=== PATIENT | female | born 1960 | race Caucasian/White ===

== ENCOUNTER → 2017-08-13 | Outpatient (CLI) | payer BC ==
[~2017-08-13] MED LIST: ASPI-482 PO; ATOR40TA PO; GLUC1TAB71 PO; MULT1TAB52 PO; OMEP20TA8 PO; VITA1CAP PO; flexeril
--- NOTE | 2017-08-13 13:44 | KCIC ---
3 view cervical spine HISTORY: Chronic neck pain and upper extremity right-sided pain. No recent injury. FINDINGS: C1-C7 are visualized on the lateral view. Mild reversal the cervical lordosis, can be seen with muscle spasm or patient positioning. Prevertebral soft tissues are not swollen. Moderate to severe loss of height at C5-6 and C6-7, with marginal osteophytes. No significant spondylolisthesis is identified. IMPRESSION: 1. Cervical spondylosis. 2. No evidence of an acute fracture or subluxation. Electronically signed by: Dima Alvarenga MD (08/13/2017 1:41 PM) [facility]
--- NOTE | 2017-08-13 14:05 | KCIC ---
Three-view thoracic spine HISTORY: Thoracic pain, chronic. COMPARISON: None FINDINGS: No evidence of an acute fracture. There is a slight right convexity thoracic scoliosis. Mild degenerative changes and marginal spurring is identified in the thoracic spine. Degenerative changes are also incidentally noted in the lower cervical spine. IMPRESSION: Degenerative change. No evidence of acute fracture or subluxation. Electronically signed by: Dima Alvarenga MD (08/13/2017 2:01 PM) [facility]
== END | disposition home or self-care (01) ==
LOC: KCIC 12:59
PROVIDERS: ATTEND Family Medicine
DX: M47.892 Other spondylosis, cervical region (principal); M47.894 Other spondylosis, thoracic region
CPT/HCPCS: 72040; 72072

== ENCOUNTER 2017-12-17 17:37 | Emergency (ER) | payer OTHER, BC ==
[2017-12-17] MEDS: IV NORMAL SALINE 1000ML BAG 1,000 ML IV (19:30)
[2017-12-17] MEDS: KETOROLAC 15 MG/ML VIAL. IV (19:30)
[2017-12-17] MEDS: ONDANSETRON PF 4 MG/2 ML VIAL. IV ×2 (19:30)
[2017-12-17 19:47] LABS: ADD MAN DIFF? NO
[2017-12-17 19:49] LABS: BASO # 0.1 x10^3/uL (0.0-0.2); BASO % 1 % (0-3); EOS # 0.2 x10^3/uL (0.0-0.7); EOS % 3 % (0-3); HEMATOCRIT 43.9 % (36.0-47.0); HEMOGLOBIN 15.3 g/dL (12.0-15.5); LYMPH # 2.9 x10^3/uL (1.0-4.8); LYMPH % 33 % (24-48); MEAN CORPUSCULAR HEMOGLOBIN 31 pg (25-35); MEAN CORPUSCULAR HGB CONC 35 g/dL (31-37); MEAN CORPUSCULAR VOLUME 89 fL (79-100); MONO # 0.8 x10^3/uL (0.0-1.1); MONO % 9 % (0-9); NEUT # 4.9 x10^3uL (1.8-7.7); NEUT % 55 % (31-73); PLATELET COUNT 221 x10^3/uL (140-400); RED BLOOD COUNT 4.94 x10^6/uL (3.50-5.40); RED CELL DISTRIBUTION WIDTH 13.6 % (11.5-14.5); WHITE BLOOD COUNT 8.8 x10^3/uL (4.0-11.0)
[2017-12-17 19:58] LABS: ANION GAP 9 (6-14); BLOOD UREA NITROGEN 15 mg/dL (7-20); BUN/CREATININE RATIO 17 (6-20); CALCIUM 9.1 mg/dL (8.5-10.1); CARBON DIOXIDE 28 mmol/L (21-32); CHLORIDE 104 mmol/L (98-107); CREATININE 0.9 mg/dL (0.6-1.0); GFR 64.8; GLUCOSE 93 mg/dL (70-99); POTASSIUM 4.1 mmol/L (3.5-5.1); SODIUM 141 mmol/L (136-145)
[2017-12-17 20:01] LABS: BILIRUBIN,URINE NEGATIVE (NEG); CLARITY,URINE CLEAR; COLOR,URINE YELLOW; GLUCOSE,URINE NEGATIVE (NEG); NITRITE,URINE NEGATIVE (NEG); PH,URINE 7.5; PROTEIN,URINE NEGATIVE (NEG-TRACE); UROBILINOGEN,URINE 0.2 mg/dL (0.2 mg/dL)
[2017-12-17 20:04] LABS: ALK PHOS 89 U/L (46-116); ALT (SGPT) 52 U/L (14-59); LIPASE 136 U/L (73-393); TOTAL BILIRUBIN 0.4 mg/dL (0.2-1.0); TOTAL PROTEIN 8.1 g/dL (6.4-8.2)
[2017-12-17 20:05] LABS: AST (SGOT) 32 U/L (15-37)
[2017-12-17 20:08] LABS: BACTERIA,URINE MANY /HPF (0-FEW); RBC,URINE OCC /HPF (0-2); SQUAMOUS EPITHELIAL CELL,UR MOD /LPF
== END 2017-12-17 21:11 | disposition home or self-care (01) ==
LOC: ER 17:37
DX: R10.32 Left lower quadrant pain (principal)
CPT/HCPCS: 36415; 74176; 80053; 81001; 83690; 85025; 87086; 87186; 96361; 96374; 96375; 99285-25; J1885; J2405; J7030

== ENCOUNTER → 2018-01-24 | Outpatient (CLI) | payer OTHER ==
[2018-01-24] MEDS: IOHEXOL 240 MG/ML 50ML VIAL. PO (10:05)
[2018-01-24] MEDS: IOHEXOL 300 MG/ML 100ML VIAL. IV (10:05)
== END | disposition home or self-care (01) ==
LOC: KCIC CT 09:00
DX: K57.30 Diverticulosis of large intestine without perforation or abscess without bleeding (principal)
CPT/HCPCS: 74177; Q9966; Q9967

== ENCOUNTER → 2018-07-11 | Outpatient (CLI) | payer BC, OTHER ==
[2017-12-17 21:00] VITALS: BP 143/89
[~2018-07-11] MED LIST changes: +ONDA4TAB10 SL; +TRAM-48 PO
--- NOTE | 2018-07-11 15:21 | KCIC ---
EXAM: Bilateral screening mammogram. HISTORY: 57-year-old female presents for screening mammography. TECHNIQUE: Full-field digital craniocaudal and mediolateral oblique views of both breasts are obtained for evaluation. Computer aided detection with [employer] software version 9.3 was applied. COMPARISON: 07/09/2017 BREAST PARENCHYMAL DENSITY: Level B - Scattered fibroglandular densities. FINDINGS: There is no new suspicious mass, microcalcification or region of architectural distortion. IMPRESSION: BI-RADS Category 2: Benign finding(s). RECOMMENDATION: Annual mammography is recommended. If your mammogram demonstrates that you have dense breast tissue, which could hide abnormalities, and if you have other risk factors for breast cancer that have been identified, you might benefit from supplemental screening tests that may be suggested by your ordering physician. Dense breast tissue, in and of itself, is a relatively common condition. This information is not provided to cause undue concern, but rather to raise your awareness and to promote discussion with your physician regarding the presence of other risk factors, in addition to dense breast tissue. A report of your mammography results will be sent to you and your physician. You should contact your physician if you have any questions or concerns regarding this report. Mammography is a sensitive method for finding small breast cancers, but it does not detect them all and is not a substitute for careful clinical examination. A negative mammogram does not negate a clinically suspicious finding and should not result in delay in biopsying a clinically suspicious abnormality. PQRS compliance statement - Patient information was entered into a reminder system with a target due date for the next mammogram. "Our facility is accredited by the [employer] Mammography Program." Electronically signed by: Mai Mccormack MD (07/11/2018 3:18 PM) [facility]
== END | disposition home or self-care (01) ==
LOC: KCIC MAMMO 13:54
PROVIDERS: ATTEND Family Medicine
DX: Z12.31 Encounter for screening mammogram for malignant neoplasm of breast (principal)
CPT/HCPCS: 77067

== ENCOUNTER → 2019-01-02 | Outpatient (CLI) | payer OTHER ==
[2017-12-17 21:00] VITALS: BP 143/89
[~2019-01-02] MED LIST changes: +ATOR10TA60 PO; +CALC500T30 PO; +CINN500C2 PO; +DICL75TA PO; +MAGN400C PO; +METH-38 PO; +MILK140C PO; +ZINC30CA PO
--- NOTE | 2019-01-02 12:22 | KCIC ---
MRI of the lumbar spine without contrast 01/02/2019 CLINICAL HISTORY: Chronic low back pain. TECHNIQUE: Unenhanced T1-weighted and T2-weighted sagittal, axial and inversion recovery sagittal images of the lumbar spine were obtained. FINDINGS: Comparison is made to radiographs of lumbar spine dated 03/27/2004. The patient is noted to have transitional vertebral anatomy. For the purposes of this dictation the transitional vertebral segment will be referred to by the letter T. A hypoplastic disc is seen at T-S1. Very mild anterolisthesis of L5 in relation to T is seen. Degenerative signal changes are seen involving all of the disks of the lumbar spine. Degenerative signal changes are seen within the marrow surrounding these discs. Marked loss of height of the L1-2 disc is noted. The conus medullaris is normal morphology, position, and signal characteristics. At the L1-2 disc space there is a mild to moderate generalized disc bulge. This is eccentric to the right. Superimposed posterior vertebral body osteophyte formation is seen. This measures 5 mm in AP diameter. Degenerative changes are seen involving the facet joints bilaterally. There is mild ligamentum flavum hypertrophy bilaterally. These findings when combined result in mild central spinal canal stenosis. Mild right neural foraminal stenosis is seen. The left neural foramen is patent. At the L2-3 and L3-4 disc spaces there are mild generalized disc bulges. Degenerative changes are seen involving the facet joints bilaterally. There is mild ligamentum flavum hypertrophy bilaterally. These findings do not result in significant central spinal canal or neural foraminal stenosis. At the L4-5 disc space there is a mild to moderate generalized disc bulge. This is eccentric to the left. Degenerative changes are seen involving the facet joints bilaterally. There is moderate ligamentum flavum hypertrophy bilaterally. These findings when combined result in mild to moderate left greater than right central spinal canal stenosis. Mild to moderate left greater than right neural foraminal stenosis is seen. At the L5-T disc space there is a mild generalized disc bulge. Degenerative changes are seen involving the facet joints bilaterally. There is moderate ligamentum flavum hypertrophy bilaterally. These findings when combined do not result in significant central spinal canal or neural foraminal stenosis. The T-S1 disc space is within normal limits. IMPRESSION: The changes of degenerative disc disease are seen throughout the lumbar spine. These findings result in mild central spinal canal stenosis at L1-2 and mild to moderate left greater than right central spinal canal stenosis at L4-5. Mild right neural foraminal stenosis is seen at L1-2. Mild to moderate left greater than right neural foraminal stenosis is seen at L4-5. Electronically signed by: Mayur Charles MD (01/02/2019 12:19 PM) [id number]
== END | disposition home or self-care (01) ==
LOC: KCIC MRI 10:33
PROVIDERS: ATTEND Family Medicine
DX: M51.36 Other intervertebral disc degeneration, lumbar region (principal); M47.816 Spondylosis without myelopathy or radiculopathy, lumbar region; M48.061 Spinal stenosis, lumbar region without neurogenic claudication; M47.24 Other spondylosis with radiculopathy, thoracic region; M51.14 Intervertebral disc disorders with radiculopathy, thoracic region; M51.26 Other intervertebral disc displacement, lumbar region
CPT/HCPCS: 72148

== ENCOUNTER → 2019-02-17 | Outpatient (CLI) | payer OTHER ==
[2017-12-17 21:00] VITALS: BP 143/89
[~2019-02-17] MED LIST changes: +BUPIVACAINE MPF 0.25% 10 ML VIAL. ONE; +IOHEXOL 180 MG/ML 10 ML VIAL. ONE; +methylPREDNISolone ACETATE 40 MG/ML VIAL. ONE; +methylPREDNISolone ACETATE 80 MG/ML VIAL. ONE
--- NOTE | 2019-02-17 17:45 | PAIN ---
DATE OF SERVICE: 02/17/2019 INITIAL CONSULTATION FOR PAIN CLINIC CHIEF COMPLAINT: Low back pain. HISTORY OF PRESENT ILLNESS: The patient is a 58-year-old female who presents with history of pain in the low back for about 4-5 years, increasing, worse over the past year or so, worse with walking, standing, changing positions, twisting, bending, especially extension of the lumbar spine, pain across the low back, worse on the left than the right, but present bilaterally. The patient reports no specific injury or accident that she is aware of, but the pain is now constant. It is becoming more sharp, stabbing, throbbing, worse with standing and walking and worse with prolonged sitting. It does not radiate into the lower extremities significantly, but she does have some pain in the left upper extremity from the neck and shoulder, which is secondary. The patient reports she wears a back brace at work and when she is active the pain increases. The patient reports it awakens her from sleep, but is only very rarely, does not affect her bowel or bladder control with any incontinence, but reports she does have some increased frequency when the pain is at its worst. The patient reports it does affect her ability to walk and stand. She tried physical therapy, also counseling and exercise, which she is currently doing, has had problem with physical therapy as well within the last 2 years without significant decrease in pain. The patient is trying diclofenac as well as methocarbamol and alendronate only with minor decrease in pain with each of these. The patient did have an MRI scan of the lumbar spine showing degenerative changes throughout the lumbar spine resulting in mild central spinal canal stenosis at L1-L2, moderate left greater than right central spinal canal stenosis at L4-L5 and mild right neural foraminal stenosis at L1-L2. The patient rates her disability rating from 0 to 10, 10 being the worst, it is a 7 with family and home responsibilities, recreation and social activity, 10 with occupation, 4 with sexual behavior, 0 with self-care and 0 with life support activities. PAST MEDICAL HISTORY: Significant for cigarette smoking, arthritis, osteoporosis, scoliosis, frequent urinary tract infections. PREVIOUS SURGERY: Include hysterectomy, bilateral carpal tunnel repair, tonsillectomy and strabismus surgery. CURRENT MEDICATIONS: Include cinnamon, milk thistle, calcium, multivitamins, turmeric, atorvastatin, magnesium, zinc, alendronate, methocarbamol and diclofenac. ALLERGIES: The patient has no known drug allergies. FAMILY HISTORY: Significant for diabetes type 1, hypertension and Alzheimer's disease. SOCIAL HISTORY: The patient drinks alcohol only socially very rarely, smokes about 6 cigarettes a day, for 15 years, does not use any illegal, illicit or recreational drugs. She is and lives with her spouse, lives locally in [place], [place] and works for the [employer]. REVIEW OF SYSTEMS: The patient's review of systems is positive for those items mentioned in history of present illness. All systems reviewed and otherwise negative. It is complete, full and well documented on the patient's chart. PHYSICAL EXAMINATION: VITAL SIGNS: The patient's blood pressure is 122/73, pulse 85, respirations 16, temperature 98.6 degrees Fahrenheit, height is 5 feet 5 inches, weight is 164 pounds. GENERAL: The patient is awake, alert, oriented, appropriate, very pleasant demeanor. HEENT: Shows normocephalic, atraumatic. Extraocular movements are intact and symmetrical. Oral cavity, mucous membranes are moist and pink. Dentition is intact. NECK: Shows anterior throat supple without palpable lymphadenopathy noted. Swallow reflex symmetrical. CHEST: Shows normal with inspection. Breath sounds clear to auscultation bilaterally. HEART: Shows S1, S2 clear. No murmurs auscultated. ABDOMEN: Soft, nontender, nondistended. No palpable organomegaly is noted. No rebound or guarding demonstrated. BACK: Shows spine grossly in the midline, normal-appearing cervical lordotic curvature, thoracic kyphotic curvature and lumbar lordotic curvature. Lumbar paraspinous muscle shows symmetrical with inspection, with palpation shows some [id number] tenderness throughout the upper, middle and lower distribution of paraspinous muscle, they are significantly more in the lower distribution on the left side greater than right with direct palpation. No specific trigger points, no radiation of pain, no tenderness over the spinous processes, sacrum or sacroiliac regions. The patient shows no tenderness over the sacrum itself. Good rotational motion of the lumbar spine is maintained with some moderate tenderness with left lateral rotation greater than 10 degrees, but not with right. Forward flexion is fairly comfortable and the patient reports extension of the spine increased pain in the left side, but actually she feels better on the right side. EXTREMITIES: Lower extremities show deep tendon reflexes 2+ in the patellar, 1+ tendo calcaneus tendons. Motor exam is strong with 5/5 dorsiflexion, extension, quadriceps and hamstring flexion and equal. Peripheral pulses are 1+ posterior tibia. No peripheral edema is noted. Lower extremities are warm and dry to touch, equal in color and appearance. Straight leg raise noted to be negative for reproduction of radicular symptoms bilaterally. Gaenslen's and Ronn's maneuvers are negative bilaterally as well. The patient is able to stand, stand on her toes without difficulty or loss of balance, walks with a normal-appearing gait, not using any assistive devices to ambulate. SKIN: Shows warm and dry, good turgor. No edema. No sores, rashes or bruising throughout. IMPRESSION: This is a 58-year-old female with, 1. A 4-5 year history increasing over the past 1 year pain in the low back, left greater than right. 2. MRI scan of lumbar spine as noted. 3. Cigarette smoking. 4. Arthritis. PLAN: Options were discussed with the patient including conservative medical management, physical therapy and interventional techniques. Since she is doing physical therapies already, she would like to try interventional techniques. We discussed bilateral L4-L5 and L5-S1 facet joint injections using description as well as anatomical models to describe the procedure. The patient would like to proceed. Risks were discussed including but not limited to bleeding, infection, possibility of epidural hematoma and subsequent neurological compromise, dural puncture, headaches, spinal cord and/or nerve damage, side effects of steroid medication and poor results regarding pain control. The patient understands and wished to proceed. The patient will return to clinic in approximately 2 weeks for followup, was counseled on her return appointment, activity level and side effects to be aware of. DIAGNOSIS: Lumbar degenerative disk disease, lumbar spondylosis. PROCEDURES: Bilateral L4-L5 and L5-S1 facet joint injections using C-arm fluoroscopic guidance under sterile prep and drape using local anesthetic. MEDICATION INJECTED: A total of 4 mL of 0.25% bupivacaine, 120 mg of Depo-Medrol and 2 mL total of contrast. CONDITION AT DISCHARGE: Stable. The patient tolerated the procedure well and had no complications. RUDI COUGHLIN MD DR: RICHARD/alex JOB#: [id number] / [id number] SUNIL Persaud MD
== END ==
LOC: PNCL 10:35
PROVIDERS: ATTEND Anesthesiology
DX: M51.36 Other intervertebral disc degeneration, lumbar region (principal); M47.816 Spondylosis without myelopathy or radiculopathy, lumbar region; F17.210 Nicotine dependence, cigarettes, uncomplicated; Z90.710 Acquired absence of both cervix and uterus; Z98.890 Other specified postprocedural states; Z72.89 Other problems related to lifestyle; Z87.440 Personal history of urinary (tract) infections
CPT/HCPCS: 64493; 64494; J1030; J1040; J3490; Q9965

== ENCOUNTER 2019-03-19 18:15 | Emergency (ER) | payer OTHER ==
[2017-12-17 21:00] VITALS: BP 143/89
[~2019-03-19] VITALS: Ht 165.1 cm; Wt 72.6 kg
[~2019-03-19 18:15] MED LIST changes: -BUPIVACAINE MPF 0.25% 10 ML VIAL. ONE; -IOHEXOL 180 MG/ML 10 ML VIAL. ONE; -methylPREDNISolone ACETATE 40 MG/ML VIAL. ONE; -methylPREDNISolone ACETATE 80 MG/ML VIAL. ONE
--- NOTE | 2019-03-19 18:48 | PHYS DOC ---
Past Medical History Past Medical History: Diverticulitis, High Cholesterol (GERRY CHRISTIE APRN) Alcohol Use: None Drug Use: None (GERRY CHRISTIE APRN) Adult General Chief Complaint Chief Complaint: HEAD INJURY/TRAUMA HPI HPI Patient is a 58 year old female who presents to the ED today complaining of left facial contusion and a mild forehead pain that has been going on since Saturday after a metal beam she was working on building a gazebo fell on her left facial area. Patient denies any loss of consciousness. She states she would like a CT of her head and face to make sure everything is okay. (GERRY CHRISTIE APRN) Review of Systems Review of Systems Constitutional: Denies fever or chills [] Eyes: Denies change in visual acuity, redness, or eye pain [] HENT: Reports left facial pain. Denies nasal congestion or sore throat [] Respiratory: Denies cough or shortness of breath [] Cardiovascular: No additional information not addressed in HPI [] GI: Denies abdominal pain, nausea, vomiting, bloody stools or diarrhea [] : Denies dysuria or hematuria [] Musculoskeletal: Denies back pain or joint pain [] Integument: Denies rash or skin lesions [] Neurologic: Reports forehead pain, denies focal weakness or sensory changes [] All other systems were reviewed and found to be within normal limits, except as documented in this note. (GERRY CHRISTIE APRN) Allergies Allergies Allergies Coded Allergies Type Severity Reaction Last Updated Verified No Known Drug Allergies 11/02/14 No (SUNIL SCHUMACHER DO) Physical Exam Physical Exam Constitutional: Well developed, well nourished, no acute distress, non-toxic appearance. [] HENT: Normocephalic, atraumatic, bilateral external ears normal, oropharynx moist, no oral exudates, nose normal. Bruising noted on the left lower eyelid.No entrapment syndrome. Eyes: PERRLA, EOMI, conjunctiva normal, no discharge. [] Neck: Normal range of motion, no tenderness, supple, no stridor. [] Cardiovascular:Heart rate regular rhythm, no murmur [] Lungs & Thorax: Bilateral breath sounds clear to auscultation [] Abdomen: Bowel sounds normal, soft, no tenderness, no masses, no pulsatile masses. [] Skin: Warm, dry, no erythema, no rash. [] Back: No tenderness, no CVA tenderness. [] Extremities: No tenderness, no cyanosis, no clubbing, ROM intact, no edema. [] Neurologic: Alert and oriented X 3, normal motor function, normal sensory function, no focal deficits noted. Cranial nerves II through XII intact Psychologic: Affect normal, judgement normal, mood normal. [] (GERRY CHRISTIE APRN) Current Patient Data Vital Signs Vital Signs Date Time Temp Pulse Resp B/P (MAP) Pulse Ox O2 Delivery O2 Flow Rate FiO2 03/19/19 18:32 98.0 75 18 139/70 (93) 96 Room Air 98.0 (SCHUMACHER,SUNIL R DO) EKG EKG [] (GERRY CHRISTIE APRN) Radiology/Procedures Radiology/Procedures []PROCEDURE: CT HEAD AND MAXILLOFACIAL WO CT brain without contrast, CT maxillofacial without contrast. HISTORY: Being fell on face, pain, headache CT brain CT scan of the brain was done without contrast. A skull fracture is not identified. Mastoids are normally aerated. There is no intracranial hemorrhage or subdural hematoma. Ventricles are normal in size. There is no mass or shift of the midline. IMPRESSION: 1. No intracranial hemorrhage or acute finding noted. End impression CT FACIAL BONES: Axial CT images were obtained through the facial bones. Sagittal and coronal reconstructed images were reviewed. Mandible is intact. Sinuses are clear throughout. A facial fracture is not identified. Upper cervical spine is in normal alignment. There is disc space narrowing at C4-5 and C5-6. Lower cervical spine is incompletely evaluated. There is foraminal narrowing at C5-6 bilaterally. There is arthritis at the TM joints bilaterally. Nasal bone is intact. Orbits are intact. IMPRESSION: 1. No facial fracture noted. PQRS Compliance Statement: One or more of the following individualized dose reduction techniques were utilized for this examination: 1. Automated exposure control 2. Adjustment of the mA and/or kV according to patient size 3. Use of iterative reconstruction technique Electronically signed by: Princess Mcelroy MD (03/19/2019 7:17 PM) [facility] DICTATED and SIGNED BY: PRINCESS MCELROY MD DATE: 03/19/191916 (GERRY CHRISTIE APRN) Course & Med Decision Making Course & Med Decision Making Pertinent Labs and Imaging studies reviewed. (See chart for details) This is a 58-year-old female patient presenting to the ED today with left facial contusion after a metal beam she was using to be intact as able fell on her face on Saturday. No loss of consciousness. Bruising noted on the left lower eyelid. CT of the head and maxillofacial were negative for any acute findings. Patient was discharged to home. Ice elevation of the affected areas recommended. OTC pain relievers. Follow-up with PCP in 1-2 weeks. (GERRY CHRISTIE APRN) Dragon Disclaimer Dragon Disclaimer This electronic medical record was generated, in whole or in part, using a voice recognition dictation system. (GERRY CHRISTIE APRN) Departure Departure Impression: Primary Impression: Facial contusion Disposition: , SELF-CARE Condition: STABLE Referrals: SUNIL BARRIENTOS MD (PCP) follow up in 2 weeks Patient Instructions: Contusion, [id number] Additional Instructions: You were evaluated in the emergency room for facial contusion, your CT of the head and cervical spine were negative for any acute findings. Try to ice and elevate the affected area, take [id number] pain relievers as needed. Follow-up with your own doctor in 1-2 weeks. Attending Signature Attending Signature I have reviewed the PA/[employer]GER's note and plan of care. I was available for consultation as needed during the patient's visit in the emergency department. I agree with the clinical impression, plan, and disposition. (SUNIL SCHUMACHER DO) Problem Qualifiers Primary Impression: Facial contusion Encounter type: initial encounter Qualified Codes: S00.83XA - Contusion of other part of head, initial encounter GERRY CHRISTIE APRN Mar 19, 2019 18:48 SUNIL SCHUMACHER DO Mar 23, 2019 14:59
--- NOTE | 2019-03-19 19:19 | RAD ---
CT brain without contrast, CT maxillofacial without contrast. HISTORY: Being fell on face, pain, headache CT brain CT scan of the brain was done without contrast. A skull fracture is not identified. Mastoids are normally aerated. There is no intracranial hemorrhage or subdural hematoma. Ventricles are normal in size. There is no mass or shift of the midline. IMPRESSION: 1. No intracranial hemorrhage or acute finding noted. End impression CT FACIAL BONES: Axial CT images were obtained through the facial bones. Sagittal and coronal reconstructed images were reviewed. Mandible is intact. Sinuses are clear throughout. A facial fracture is not identified. Upper cervical spine is in normal alignment. There is disc space narrowing at C4-5 and C5-6. Lower cervical spine is incompletely evaluated. There is foraminal narrowing at C5-6 bilaterally. There is arthritis at the TM joints bilaterally. Nasal bone is intact. Orbits are intact. IMPRESSION: 1. No facial fracture noted. PQRS Compliance Statement: One or more of the following individualized dose reduction techniques were utilized for this examination: 1. Automated exposure control 2. Adjustment of the mA and/or kV according to patient size 3. Use of iterative reconstruction technique Electronically signed by: Tariq Mcelroy MD (03/19/2019 7:17 PM) [facility]
== END 2019-03-19 19:36 | disposition home or self-care (01) ==
LOC: ER 18:15
DX: S00.83XA Contusion of other part of head, initial encounter (principal); E78.00 Pure hypercholesterolemia, unspecified; W22.8XXA Striking against or struck by other objects, initial encounter; Y93.H3 Activity, building and construction; Y92.61 Building [any] under construction as the place of occurrence of the external cause; Y99.0 Civilian activity done for income or pay
CPT/HCPCS: 70450; 70486; 99284-25

== ENCOUNTER → 2019-04-02 | Outpatient (CLI) | payer OTHER ==
[2019-03-19 18:32] VITALS: BP 139/70
[~2019-04-02] MED LIST changes: +BUPIVACAINE MPF 0.25% 10 ML VIAL. ONE; +IOHEXOL 180 MG/ML 10 ML VIAL. ONE; +methylPREDNISolone ACETATE 40 MG/ML VIAL. ONE; +methylPREDNISolone ACETATE 80 MG/ML VIAL. ONE
--- NOTE | 2019-04-02 14:25 | PAIN ---
DATE OF SERVICE: 04/02/2019 PROGRESS NOTE FOR PAIN CLINIC DIAGNOSES: Lumbar degenerative disk disease, lumbar and lumbosacral spondylosis. HISTORY OF PRESENT ILLNESS: The patient is a 58-year-old female who returns for followup status post bilateral L4-L5 and L5-S1 facet joint injections on 02/17/2019. The patient did very well, reports about 90% improvement until the last week or so. She was putting up a gazebo and part of it fell on her and knocked her down when she has had increased pain in her low back since that time. The patient reports it is worse on the left than the right. This come back like it was, not quite to the area it was, still about 50% improvement overall. The patient reports no new motor or sensory deficits and no new bowel or bladder incontinence. The patient describes the pain as aching and tight, constant in the low back itself; worse with extension, standing, and walking. The patient reports it is a 6 on a scale of 10 at all times, worst average at least over the past week and is a 6 today. The patient reports it does not awaken her from sleep at night. She feels better with sitting or lying down. No new motor or sensory deficits or other complaints. PHYSICAL EXAMINATION: VITAL SIGNS: The patient's blood pressure is 136/86, pulse 90, respirations 18 an temperature 98.8 degrees Fahrenheit. Height is 5 feet 4 inches and weight is 160 pounds. GENERAL: The patient is awake, alert, oriented, appropriate and very pleasant demeanor. HEENT: Head is normocephalic and atraumatic. Extraocular movements are intact and symmetrical. Oral cavity, mucous membranes are moist and pink. Dentition intact. NECK: Shows anterior throat supple without palpable lymphadenopathy noted. Swallow reflex symmetrical. CHEST: Shows normal with inspection. Breath sounds are clear to auscultation bilaterally. HEART: Shows S1 and S2 clear. No murmurs auscultated. ABDOMEN: Soft, nontender and nondistended. No palpable organomegaly is noted. No rebound or guarding demonstrated. BACK: Shows spine grossly in the midline. Normal appearing thoracic kyphosis, some minor flattening of the lumbar lordotic curvature. Lumbar paraspinous muscle shows symmetrical on inspection, on palpation shows some mild tenderness in the low lumbar distribution, only mildly bilaterally without trigger points, without asymmetry. The patient shows good rotational motion both laterally as well as extension and flexion with some moderate pain with extension in the low back, greater on the left than the right, better with forward flexion at 45 degrees. EXTREMITIES: Lower extremities show deep tendon reflexes 2+ in the patellar, 1+ tendo-calcaneus tendons. Motor exam is strong with 5/5 dorsiflexion, extension and equal. Options were discussed with the patient. The patient's old chart was reviewed as well as her current medications regimen updated. Current review of systems updated today as well. We will proceed with bilateral L4-L5 and L5-S1 facet joint injections today with fluoroscopic guidance, is a second in this series. Risks were again discussed including, but not limited to bleeding, infection, possibility of epidural hematoma, subsequent neurological compromise, dural puncture, headaches, spinal cord and/or nerve damage, side effects of steroid medication and poor results regarding pain control. The patient understands and wished to proceed. The patient will return to the clinic in approximately 2 weeks for followup, was counseled as to return appointment, activity level and side effects to be aware of. DIAGNOSIS: Lumbar and lumbosacral spondylosis. PROCEDURE: Lumbar L4-L5 and L5-S1 facet joint injections bilaterally using C-arm fluoroscopic guidance under sterile prep and drape using local anesthetic. MEDICATION INJECTED: A total of 120 mL of Depo-Medrol plus total of 4 mL 0.25% bupivacaine and total of 2 mL of contrast. CONDITION AT DISCHARGE: Stable. The patient tolerated the procedure well and had no complications. RUDI COUGHLIN MD DR: RICHARD/alex JOB#: [id number] / [id number]
== END ==
LOC: PNCL 09:32
PROVIDERS: ATTEND Anesthesiology
DX: M51.36 Other intervertebral disc degeneration, lumbar region (principal); M47.817 Spondylosis without myelopathy or radiculopathy, lumbosacral region
CPT/HCPCS: 64493; 64494; J1030; J1040; J3490; Q9965

== ENCOUNTER → 2019-06-24 | Outpatient (CLI) | payer OTHER ==
[2019-03-19 18:32] VITALS: BP 139/70
--- NOTE | 2019-06-24 12:05 | PAIN ---
DATE OF SERVICE: 06/24/2019 PROGRESS NOTE FOR PAIN CLINIC DIAGNOSES: Lumbar degenerative disk disease with lumbar and lumbosacral spondylosis. HISTORY OF PRESENT ILLNESS: The patient is a 58-year-old female who returns for followup status post bilateral L4-L5 and L5-S1 facet joint injections, last seen 04/02/2019. The patient did very well for about 2 months of near 100% improvement by her report with the pain returning now, but only to moderate extent in the low back bilaterally, somewhat worse on the right than the left, but present bilaterally. The patient also reports pain in the base of the neck and right upper extremity where she had previously with some degenerative changes of the cervical spine and her chief complaint is low back pain bilaterally. The patient reports it is worse with standing, walking, changing positions, better with lying down or sitting, awakens her from sleep, better 5-6 hours, however, the patient can usually reposition and get back to sleep, worse with lying on her left side. The patient reports the pain is 8 on a scale of 10 at its worst over the past week, 7 on average, 6 at its least and is a 6 today. The patient reports it is aching, sharp, tight, burning, stabbing, becoming more constant with walking, standing, especially with extension of the lumbar spine and axial loading of the low back. The patient reports no new motor or sensory deficits, no bowel or bladder incontinence. PHYSICAL EXAMINATION: VITAL SIGNS: The patient's blood pressure 149/69, pulse 85, respirations 18, temperature 98.5 degrees Fahrenheit, height is 64 inches, weight is 154 pounds. GENERAL: The patient is awake, alert, oriented, appropriate, very pleasant demeanor. HEENT: Shows normocephalic, atraumatic. Extraocular movements are intact and symmetrical. Oral cavity: Mucous membranes moist and pink. Dentition is intact. NECK: Shows anterior throat supple without palpable lymphadenopathy noted. Swallow reflex symmetrical. CHEST: Shows normal on inspection. Breath sounds clear to auscultation bilaterally. HEART: Shows S1, S2 clear. No murmurs auscultated. ABDOMEN: Soft, nontender, nondistended. BACK: Shows spine grossly in the midline. Slight exaggeration of thoracic kyphosis, minor flattening of lumbar lordotic curvature. Lumbar paraspinous muscle shows symmetrical on inspection, on palpation shows some moderate tenderness diffusely bilaterally, but only diffusely without specific radiation. The patient has good rotational motion with some moderate tenderness with right greater than left rotation past 10 degrees as well as with extension significant tenderness in the low back, more on the right than the left, but better with forward flexion at 45 degrees which she performed without significant difficulty. EXTREMITIES: The patient's lower extremities show deep tendon reflexes 2+ in the patellar, 1+ tendo-calcaneus tendons. Motor exam is strong with 5/5 dorsiflexion, extension, quadriceps and hamstring flexion. Peripheral pulses are 1+ posterior tibia. No peripheral edema is noted bilaterally. Options were discussed with the patient. The patient's old chart was reviewed as her current medication regimen updated. Current review of systems updated today as well. We will proceed with a L4-L5 and L5-S1 facet joint injections today. She did very well with the last series. Risks were again discussed including, but not limited to bleeding, infection, possibility of epidural hematoma, subsequent neurological compromise, dural puncture, headaches, spinal cord and/or nerve damage, side effects of steroid medication and poor results regarding pain control. The patient understands and wished to proceed. The patient will return to clinic in approximately 2 weeks for followup. She was counseled as to return appointment, activity level and side effects to be aware of. DIAGNOSES: Lumbar and lumbosacral spondylosis. PROCEDURE: Bilateral L4-L5 and L5-S1 facet joint injection using C-arm fluoroscopic guidance under sterile prep and drape using local anesthetic. MEDICATION INJECTED: A total of 120 mg of Depo-Medrol plus total of 4 mL of 0.25% bupivacaine and 2 mL of contrast. CONDITION AT DISCHARGE: Stable. The patient tolerated the procedure well, had no complications. RUDI COUGHLIN MD DR: RICHARD/alex JOB#: [id number] / [id number]
== END ==
LOC: PNCL 10:18
PROVIDERS: ATTEND Anesthesiology
DX: M47.817 Spondylosis without myelopathy or radiculopathy, lumbosacral region (principal); M51.36 Other intervertebral disc degeneration, lumbar region
CPT/HCPCS: 64493; 64494; J1030; J1040; J3490; Q9965

== ENCOUNTER → 2019-07-10 | Outpatient (CLI) | payer OTHER ==
[2019-03-19 18:32] VITALS: BP 139/70
[~2019-07-10] MED LIST changes: -BUPIVACAINE MPF 0.25% 10 ML VIAL. ONE
--- NOTE | 2019-07-10 23:35 | PAIN ---
DATE OF SERVICE: 07/10/2019 PROGRESS NOTE FOR PAIN CLINIC DIAGNOSES: 1. Lumbar and lumbosacral spondylosis, lumbar degenerative disk disease. 2. Cervical radiculopathy with cervical degenerative disk disease. HISTORY OF PRESENT ILLNESS: The patient is a 58-year-old female who returns for followup status post bilateral lumbar facet joint injections. The patient did very well with near 100% improvement in the back. Her main complaint is right shoulder and arm pain as well as the base of the neck and upper neck and we talked about this on her last visit to proceed. The patient reports the pain is still significant and her low back is doing somewhat better. She has increased her activity with greater ease and comfort, doing work activities, household activities, walking greater distances. Her main complaint is right upper extremity with pain with repetitive motions, lifting items with the right arm, raising her right arm over her head. The patient reports the pain is 8 on a scale of 10 at its worst. Considering the neck and shoulder, right upper extremity, 8 on average and a 5 at its least over the past week and is a 5 today. The patient reports it is aching type, burning, constant. The patient reports no new motor or sensory deficits, no new changes. PHYSICAL EXAMINATION: VITAL SIGNS: The patient's blood pressure 144/88, pulse 81, respirations 18, temperature 98.6 degrees Fahrenheit, height is 5 feet 5 inches, weight is 153 pounds. GENERAL: The patient is awake, alert, oriented, appropriate, very pleasant demeanor. HEENT: Head shows normocephalic, atraumatic. Extraocular movements are intact and symmetrical. Oral cavity: Mucous membranes moist and pink. Dentition is intact. NECK: Shows anterior throat supple without palpable lymphadenopathy noted. Swallow reflex symmetrical. CHEST: Shows normal on inspection. Breath sounds clear to auscultation bilaterally. EXTREMITIES: The patient's upper extremity show deep tendon reflexes at 2+ in the biceps, triceps tendons. Motor exam is strong with 5/5 transportation planner strength, bicep and tricep flexion. Shoulder shrug is strong and intact without loss of strength on resistance. Peripheral pulses are 2+ radial distribution. No peripheral edema is noted. Options were discussed with the patient. The patient's old chart was reviewed as her current medication regimen updated. Current review of systems updated today as well. We will proceed with a cervical epidural steroid injection today with fluoroscopic guidance. Risks were again discussed including, but not limited to bleeding, infection, possibility of epidural hematoma, subsequent neurological compromise, dural puncture, headaches, spinal cord and/or nerve damage, side effects of steroid medication and poor results regarding pain control. The patient understands and wished to proceed. The patient will return to clinic in approximately 2 weeks for followup. She was counseled on return appointment, activity level and side effects to be aware of. DIAGNOSIS: Cervical radiculopathy with cervical degenerative disk disease. PROCEDURE: Cervical epidural steroid injection, translaminar approach C6-C7 level using C-arm fluoroscopic guidance under sterile prep and drape using local anesthetic. MEDICATION INJECTED: A total of 120 mg Depo-Medrol plus 5 mL of preservative-free normal saline and 2 mL of contrast. CONDITION AT DISCHARGE: Stable. The patient tolerated procedure well, had no complications. RUDI COUGHLIN MD DR: RICHARD/alex JOB#: [id number] / [id number]
== END | disposition home or self-care (01) ==
LOC: PNCL 08:32
PROVIDERS: ATTEND Anesthesiology
DX: M50.123 Cervical disc disorder at C6-C7 level with radiculopathy (principal); M51.36 Other intervertebral disc degeneration, lumbar region; M47.816 Spondylosis without myelopathy or radiculopathy, lumbar region; Z98.890 Other specified postprocedural states
CPT/HCPCS: 62321; J1030; J1040; Q9965

== ENCOUNTER → 2019-07-17 | Outpatient (CLI) | payer OTHER ==
[2019-03-19 18:32] VITALS: BP 139/70
[~2019-07-17] MED LIST changes: -IOHEXOL 180 MG/ML 10 ML VIAL. ONE; -methylPREDNISolone ACETATE 40 MG/ML VIAL. ONE; -methylPREDNISolone ACETATE 80 MG/ML VIAL. ONE
--- NOTE | 2019-07-17 11:17 | KCIC ---
Bilateral digital screening mammograms: Reason for examination: Routine screening. Comparison is made to previous studies dated 07/11/2018 and 07/09/2017. Interpretation was made with the benefit of CAD. The skin and nipples show no abnormalities. No abnormal axillary lymph nodes are seen. The breast parenchyma shows scattered fibroglandular density. (Breast density: Category B.) There are no dominant masses, suspicious calcifications or architectural distortions. A few benign calcifications are again seen on the right. Impression: No evidence of malignancy. Recommend routine screening. BI-RADS Category 2: Benign. "Our facility is accredited by the [employer] Mammography [employer]." This patient's information has been entered into a reminder system for the patient to be notified with the results of her examination and a target date for the next mammogram. Electronically signed by: Tiffanie Wade MD (07/17/2019 11:14 AM) [id number]
== END | disposition home or self-care (01) ==
LOC: KCIC MAMMO 08:37
PROVIDERS: ATTEND Family Medicine
DX: Z12.31 Encounter for screening mammogram for malignant neoplasm of breast (principal); N64.89 Other specified disorders of breast
CPT/HCPCS: 77067

== ENCOUNTER → 2020-08-11 | Outpatient (CLI) | payer BC ==
[2019-03-19 18:32] VITALS: BP 139/70
[~2020-08-11] MED LIST changes: +MULT-445 PO; -MULT1TAB52 PO
--- NOTE | 2020-08-11 12:21 | KCIC ---
Bilateral digital screening mammograms: Reason for examination: Routine screening. Comparison is made to previous studies dated back to 07/03/2016. Interpretation was made with the benefit of CAD. The skin and nipples show no abnormalities. No abnormal axillary lymph nodes are seen. The breast parenchyma shows scattered fibroglandular density. (Breast density: Category B.) There appears to be a small 5 mm nodular density anteriorly in the left breast 4 cm posterior and slightly medial to the nipple. This may be located in the retroareolar 9:00 position. Further evaluation however with additional views and ultrasound is recommended. There are no other dominant masses, suspicious calcifications or architectural distortions. Impression: Small 5 mm nodular density anterior and slightly medial to the nipple line in the left breast on cc view. Recommend further evaluation with coned compression views and ultrasound. BI-RADS Category 0: Incomplete. Needs additional imaging evaluation. "Our facility is accredited by the [employer] Mammography [employer]." This patient's information has been entered into a reminder system for the patient to be notified with the results of her examination and a target date for the next mammogram. Electronically signed by: Tiffanie Wade MD (08/11/2020 12:16 PM) [id number]
== END ==
LOC: KCIC MAMMO 08:45
PROVIDERS: ATTEND Family Medicine
DX: Z12.31 Encounter for screening mammogram for malignant neoplasm of breast (principal); N64.89 Other specified disorders of breast
CPT/HCPCS: 77067

== ENCOUNTER → 2020-09-15 | Outpatient (CLI) | payer BC ==
[2019-03-19 18:32] VITALS: BP 139/70
--- NOTE | 2020-09-15 11:24 | RAD ---
EXAM: Left breast diagnostic mammogram; left breast sonogram. HISTORY: 59-year-old female presents for evaluation of asymmetry within the left breast demonstrated on a screening mammogram dated 08/11/2020. TECHNIQUE: Full-field true lateral and spot compression views of the left breast are obtained. Sonogr aphic imaging of the left breast targeted to the site of mammographic asymmetry was also performed. COMPARISON: 08/11/2020 BREAST PARENCHYMAL DENSITY: Level B - Scattered fibroglandular densities. FINDINGS: There is no persistent finding of concern within the left breast with additional mammograph ic views. No mass, architectural distortion or suspicious calcification is seen. Sonographic imaging of the left breast demonstrates no suspicious finding. IMPRESSION: 1. No persistent suspicious mammographic or sonographic finding within the left breast. 2. BI-RADS Category 2: Benign finding(s). RECOMMENDATION: Annual mammography is recommended. If your mammogram demonstrates that you have dense breast tissue, which could hide abnormalities, and if you have other risk factors for breast cancer that have been identified, you might benefit from s upplemental screening tests that may be suggested by your ordering physician. Dense breast tissue, i n and of itself, is a relatively common condition. This information is not provided to cause undue c oncern, but rather to raise your awareness and to promote discussion with your physician regarding th e presence of other risk factors, in addition to dense breast tissue. A report of your mammography re sults will be sent to you and your physician. You should contact your physician if you have any ques tions or concerns regarding this report. Mammography is a sensitive method for finding small breast cancers, but it does not detect them all a nd is not a substitute for careful clinical examination. A negative mammogram does not negate a clin ically suspicious finding and should not result in delay in biopsying a clinically suspicious abnorma lity. PQRS compliance statement - Patient information was entered into a reminder system with a target due date for the next mammogram. "Our facility is accredited by the [employer] Mammography [employer]." Electronically signed by: Mai Mccormack MD (09/15/2020 11:21 AM) [id number]
== END ==
LOC: MAMMO 10:21
PROVIDERS: ATTEND Family Medicine
DX: R92.8 Other abnormal and inconclusive findings on diagnostic imaging of breast (principal)
CPT/HCPCS: 76641; 77065

== ENCOUNTER → 2021-10-23 | Outpatient (CLI) | payer BC ==
[2019-03-19 18:32] VITALS: BP 139/70
--- NOTE | 2021-10-23 11:28 | KCIC ---
Bilateral digital screening mammograms with 3-D tomosynthesis: Reason for examination: Routine screening. Comparison is made to previous studies dated back to 07/03/2016. Bilateral mammograms in CC and oblique projections were obtained with 2-D imaging and 3-D tomosynthes is imaging on a Siemens Inspiration unit and reviewed on the workstation. Interpretation was made wit h the benefit of CAD. The skin and nipples show no abnormalities. No abnormal axillary lymph nodes are seen. The breast par enchyma shows scattered fatty and fibroglandular density. (Breast density: Category B.) There are no dominant masses, suspicious calcifications or architectural distortion. A few benign calcifications a re again seen. BE stable. Impression: No evidence of malignancy. Recommend routine screening. BI-RAD Category 2: Benign. "Our facility is accredited by the [employer] Mammography Program." This patient's information has been entered into a reminder system for the patient to be notified wit h the results of her examination and a target date for the next mammogram. Electronically signed by: Tiffanie Wade MD (10/23/2021 11:26 AM) [email or web address]
== END ==
LOC: KCIC MAMMO 10:30
PROVIDERS: ATTEND Family Medicine
DX: Z12.31 Encounter for screening mammogram for malignant neoplasm of breast (principal)
CPT/HCPCS: 77063; 77067

== ENCOUNTER → 2022-02-02 | Outpatient (CLI) | payer BC ==
[2019-03-19 18:32] VITALS: BP 139/70
[~2022-02-02] MED LIST changes: -OMEP20TA8 PO; +OMEP20TA91 PO
--- NOTE | 2022-02-02 11:29 | KCIC ---
CT LOW DOSE LUNG SCREEN INDICATION: Lung cancer screening, smoker of 25 yrs. History of nicotine dependence. COMPARISON STUDY: None. TECHNIQUE: Unenhanced axial images were obtained through the lungs and upper abdomen using low dose technique. Coronal and sagittal multiplanar reformatted images were also obtained. PQRS compliance statement: One or more of the following individualized dose reduction techniques were utilized for this examinat ion: 1. Automated exposure control 2. Adjustment of the mA and/or kV according to patient size 3. Use of iterative reconstruction technique FINDINGS: Lung Nodules: No suspicious pulmonary nodules. Left lower lobe calcified granuloma. Lungs and Airways: No pulmonary mass or consolidation. Normal central airways. Pleura: Normal pleural spaces. Heart and Mediastinum: The visualized portions of the thyroid gland are normal in size and attenuatio n. No axillary or supraclavicular lymphadenopathy. No mediastinal, hilar or retrocrural lymphadenopat hy. Normal cardiac size. No coronary artery calcifications. The great vessels of the thorax are james l. Abdomen: The visualized abdominal organs demonstrate no abnormality. Bones and Soft Tissues: Degenerative changes of the spine. IMPRESSION: No suspicious pulmonary nodules Lung-RADS Category: 1 Management Recommendation: Follow up low-dose chest CT in one year. Electronically signed by: Costa Serrano MD (02/02/2022 11:27 AM) [facility]
== END ==
LOC: KCIC CT 08:36
PROVIDERS: ATTEND Family Medicine
DX: J84.10 Pulmonary fibrosis, unspecified (principal); M47.819 Spondylosis without myelopathy or radiculopathy, site unspecified; Z87.891 Personal history of nicotine dependence
CPT/HCPCS: 71271